=== PATIENT | female | born 1995 | race Caucasian/White ===

== ENCOUNTER → 2017-02-22 | Outpatient (CLI) | payer OTHER ==
[2017-02-22 11:07] LABS: HEMOGLOBIN 14.9 gm/dl (12.3-15.3); RED BLOOD COUNT 4.75 M/UL (4.00-5.10); WHITE BLOOD COUNT 8.5 K/UL (4.5-11.0)
[2017-02-22 11:27] LABS: BUN/CREATININE RATIO 17 (0-10)
== END ==
LOC: LAB 10:09
PROVIDERS: Family Medicine
DX: I10 Essential (primary) hypertension (principal); E78.5 Hyperlipidemia, unspecified; E55.9 Vitamin D deficiency, unspecified
CPT/HCPCS: 36415; 80053; 80061; 84439; 84443; 85027

== ENCOUNTER 2021-02-16 01:49 | Emergency (ER) | payer SELFPAY ==
[~2021-02-16 01:49] MED LIST: ALDACTONE25 MG PO; ANTI-ITCH28 G1 TP; ASPIR 8181 MG PO; BENADRYL25 MG PO; CARDIZEM CD120 MG PO; CATAPRES0.2 MG PO; KEFLEX CAP 500500 MG PO; MACROBID 100 M100 MG PO; NITROSTAT0.4 MG SL; ONDANSETRON ODT4 MG PO; PERCOCET 5-3251 EACH PO; PERCOCET 5/325 T1 EA PO; PREDNISONE 50 M50 MG PO; PROTONIX40 MG PO; TOPROL XL100 MG PO; ZANTAC 150 MG150 MG PO; ZESTRIL40 MG PO; ZOFRAN ODT 4 MG4 MG PO; ZYRTEC10 MG PO
== END 2021-02-16 08:07 | disposition home or self-care (01) ==
LOC: ER1 01:49
DX: S46.911A Strain of unspecified muscle, fascia and tendon at shoulder and upper arm level, right arm, initial encounter (principal); S63.501A Unspecified sprain of right wrist, initial encounter; S53.401A Unspecified sprain of right elbow, initial encounter; I10 Essential (primary) hypertension; Z91.14 Patient's other noncompliance with medication regimen; F17.210 Nicotine dependence, cigarettes, uncomplicated; W01.0XXA Fall on same level from slipping, tripping and stumbling without subsequent striking against object, initial encounter; Y92.69 Other specified industrial and construction area as the place of occurrence of the external cause; Y99.0 Civilian activity done for income or pay
CPT/HCPCS: 73030; 73080; 73090; 73110; 99283

== ENCOUNTER 2021-06-29 08:52 | Emergency (ER) | payer BC ==
[2021-06-29 11:20] LABS: HEMOGLOBIN 16.4 gm/dl (12.3-15.3); RED BLOOD COUNT 5.29 M/UL (4.00-5.10)
[2021-06-29 11:24] LABS: BUN/CREATININE RATIO 15 (0-10)
[2021-06-29] MEDS ORDERED: TOPROL XL100 MG PO (14:33)
[2021-06-29] MEDS ORDERED: ZESTRIL40 MG PO (14:33)
== END 2021-06-29 14:49 | disposition home or self-care (01) ==
LOC: ER1 08:52
PROVIDERS: Student in an Organized Health Care Education/Training Program
DX: U07.1 COVID-19 (principal); J12.82 Pneumonia due to coronavirus disease 2019; I10 Essential (primary) hypertension; F17.210 Nicotine dependence, cigarettes, uncomplicated; Z90.49 Acquired absence of other specified parts of digestive tract; Z88.6 Allergy status to analgesic agent
CPT/HCPCS: 71045; 80053; 82550; 82553; 83605; 83690; 83735; 83874; 83880; 84100; 84439; 84443; 84484; 84702; 85025; 85379; 85610; 85730; 93005; 96374; 99285; G0480; U0002

== ENCOUNTER 2021-12-05 01:46 | Emergency (ER) | payer BC ==
[2021-12-05] MEDS ORDERED: EPIPEN 2-P0.3 MG/0.3 INJ (04:14)
== END 2021-12-05 05:40 | disposition home or self-care (01) ==
LOC: ER1 01:46
DX: T78.1XXA Other adverse food reactions, not elsewhere classified, initial encounter (principal); L50.0 Allergic urticaria; R21 Rash and other nonspecific skin eruption; I10 Essential (primary) hypertension; Z88.8 Allergy status to other drugs, medicaments and biological substances; X58.XXXA Exposure to other specified factors, initial encounter
CPT/HCPCS: 93005; 96374; 99283; J1100

== ENCOUNTER 2021-12-10 04:41 | Emergency (ER) | payer BC ==
[~2021-12-10 04:41] MED LIST changes: +EPIPEN 2-P0.3 MG/0.3 INJ
== END 2021-12-10 05:41 | disposition home or self-care (01) ==
LOC: ER1 04:41
DX: S63.501A Unspecified sprain of right wrist, initial encounter (principal); I10 Essential (primary) hypertension; W01.0XXA Fall on same level from slipping, tripping and stumbling without subsequent striking against object, initial encounter; Y92.009 Unspecified place in unspecified non-institutional (private) residence as the place of occurrence of the external cause
CPT/HCPCS: 29125; 73090; 73110; 73130; 99283

== ENCOUNTER 2022-05-25 07:06 | Inpatient (IN) | payer BC ==
[~2022-05-25] VITALS: Ht 160 cm; Wt 102.1 kg
[2022-05-25 08:12] LABS: HEMOGLOBIN 15.6 gm/dl (12.3-15.3); RED BLOOD COUNT 5.12 M/UL (4.00-5.10); WHITE BLOOD COUNT 10.4 K/UL (4.5-11.0)
[2022-05-25 08:42] LABS: BUN/CREATININE RATIO 20 (0-10)
[2022-05-25] MEDS ORDERED: LISINOPRIL20 MG PO (11:51)
[2022-05-25] MEDS ORDERED: METOPROLOL SUC100 MG PO (11:52)
[2022-05-26 05:52] LABS: HEMOGLOBIN 14.5 gm/dl (12.3-15.3); RED BLOOD COUNT 4.81 M/UL (4.00-5.10)
[2022-05-26 05:53] LABS: WHITE BLOOD COUNT 17.7 K/UL (4.5-11.0)
[2022-05-26 06:19] LABS: BUN/CREATININE RATIO 27 (0-10)
--- NOTE | 2022-05-26 16:44 | NUR ---
PATIENTS BP 163/115. DR. OLSON NOTIFIED. NEW ORDERS NOTED. RBVO.
--- NOTE | 2022-05-26 18:11 | NUR ---
PATIENT CALLED OUT STATING "MY CHEST IS HURTING AND MY HEART IS RACIING." VITAL SIGNS OBTAINED AND DR. OLSON NOTIFED. STAT EKG OBTAINED AND TROPONINS ORDERED. WAITING FOR RESULTS.
--- NOTE | 2022-05-26 18:38 | NUR ---
DR. OLSON NOTIFIED OF PATIENTS EKG RESULTS. NO NEW ORDERS AT THIS TIME.
[2022-05-27 02:05] LABS: HEMOGLOBIN 15.7 gm/dl (12.3-15.3); RED BLOOD COUNT 5.12 M/UL (4.00-5.10); WHITE BLOOD COUNT 21.2 K/UL (4.5-11.0)
[2022-05-27 02:30] LABS: BUN/CREATININE RATIO 29 (0-10)
[2022-05-27 12:08] LABS: HEMOGLOBIN 15.5 gm/dl (12.3-15.3); RED BLOOD COUNT 5.11 M/UL (4.00-5.10); WHITE BLOOD COUNT 19.7 K/UL (4.5-11.0)
--- NOTE | 2022-05-27 15:01 | NUR ---
[address] OLSON CRTICAL TROPONIN 820.3 NO NEW ORDERS AT THIS TIME
[2022-05-28 04:31] LABS: HEMOGLOBIN 13.8 gm/dl (12.3-15.3); RED BLOOD COUNT 4.62 M/UL (4.00-5.10)
[2022-05-28 04:58] LABS: BUN/CREATININE RATIO 43 (0-10)
[2022-05-28] MEDS ORDERED: PROTONIX40 MG PO (15:26)
[2022-05-28] MEDS ORDERED: PROAIR HFA8.5 GM INH (15:26)
[2022-05-28] MEDS ORDERED: CARVEDILOL25 MG PO (15:26)
[2022-05-28] MEDS ORDERED: ASPIRIN EC81 MG PO (15:26)
[2022-05-28] MEDS ORDERED: LISINOPRIL20 MG PO (15:26)
[2022-05-28] MEDS ORDERED: CATAPRES 0.1MG0.1 MG PO (15:26)
[2022-05-28] MEDS ORDERED: MEDROL DOSEPAK 24 MG PO (15:26)
[2022-05-28] MEDS ORDERED: IPRAT-ALBUT 0.5-3 ML NEB (15:26)
[2022-05-28] MEDS ORDERED: BUDESONIDE0.5 MG/2 M NEB (15:37)
== END 2022-05-28 17:35 | disposition home or self-care (01) | DRG 202 ==
LOC: ER1 07:06 → MED SURG 4 10:23 → CDU 10:23 → MED SURG 4 12:06
PROVIDERS: Emergency Medicine; Internal Medicine; Internal Medicine Cardiovascular Disease; Physician Assistant; ADMIT Internal Medicine
PROC: B24BZZZ Ultrasonography of Heart with Aorta (ICD-10-PCS; principal; 2022-05-27)
DX: J45.901 Unspecified asthma with (acute) exacerbation (principal); I21.A1 Myocardial infarction type 2; Z20.822 Contact with and (suspected) exposure to COVID-19; I10 Essential (primary) hypertension; R00.0 Tachycardia, unspecified; E66.01 Morbid (severe) obesity due to excess calories; K44.9 Diaphragmatic hernia without obstruction or gangrene; R07.89 Other chest pain; I16.0 Hypertensive urgency; E28.2 Polycystic ovarian syndrome; I08.1 Rheumatic disorders of both mitral and tricuspid valves; Z96.698 Presence of other orthopedic joint implants; Z98.890 Other specified postprocedural states; Z90.49 Acquired absence of other specified parts of digestive tract; Z82.49 Family history of ischemic heart disease and other diseases of the circulatory system; Z87.891 Personal history of nicotine dependence; Z82.5 Family history of asthma and other chronic lower respiratory diseases; Z88.8 Allergy status to other drugs, medicaments and biological substances; Z88.6 Allergy status to analgesic agent; Z68.39 Body mass index [BMI] 39.0-39.9, adult; Z91.14 Patient's other noncompliance with medication regimen; Z79.01 Long term (current) use of anticoagulants; Z79.82 Long term (current) use of aspirin
CPT/HCPCS: ECHO; 0240U; 36415; 36600; 71045; 78452; 80048; 80053; 80061; 82550; 82553; 82803; 83036; 83735; 83880; 84439; 84443; 84484; 84703; 85025; 85379; 85610; 85730; 87040; 93005; 93017; 93306; 94640; 94664; 94760; 96374; 96375; 96376; 99285; A9502; C9113; G0378; J0360; J0696; J1644; J1650; J2270; J2785; J2920; J2930

== ENCOUNTER → 2022-06-05 | Outpatient (CLI) | payer BC ==
[~2022-06-05] MED LIST changes: +ASPIRIN EC81 MG PO; +BUDESONIDE0.5 MG/2 M NEB; +CARVEDILOL25 MG PO; +CATAPRES 0.1MG0.1 MG PO; +IPRAT-ALBUT 0.5-3 ML NEB; +LISINOPRIL20 MG PO; +MEDROL DOSEPAK 24 MG PO; +METOPROLOL SUC100 MG PO; +PROAIR HFA8.5 GM INH
== END ==
LOC: HEART 5 14:24
DX: J45.40 Moderate persistent asthma, uncomplicated (principal)
CPT/HCPCS: 94010; 95012